=== PATIENT | male | born 1985 | race Caucasian/White ===

== ENCOUNTER 2018-12-28 13:06 | Emergency (ER) | payer SELFPAY ==
[~2018-12-28] VITALS: Ht 188 cm; Wt 75.0 kg
[2018-12-28] MEDS ORDERED: CEPHALEXIN500 M1 PO (13:29)
[2018-12-28] MEDS ORDERED: WELLBUTRIN SR150 M1 PO (13:35)
[2018-12-28] MEDS ORDERED: VYVANSE60 MG PO (13:36)
[2018-12-28 14:29] VITALS: BP 135/88; PULSE 81; TEMP 98.1
== END 2018-12-28 14:30 | disposition home or self-care (01) ==
LOC: COL.ER 13:06
DX: S61.412A Laceration without foreign body of left hand, initial encounter (principal); F17.220 Nicotine dependence, chewing tobacco, uncomplicated; Z23 Encounter for immunization; W26.8XXA Contact with other sharp object(s), not elsewhere classified, initial encounter; Y93.39 Activity, other involving climbing, rappelling and jumping off; Y92.410 Unspecified street and highway as the place of occurrence of the external cause

== ENCOUNTER 2019-01-01 17:14 | Emergency (ER) | payer OTHER ==
[~2019-01-01] VITALS: Ht 188 cm; Wt 75.0 kg
[~2019-01-01 17:14] MED LIST: CEPHALEXIN500 M1 PO; VYVANSE60 MG PO; WELLBUTRIN SR150 M1 PO
[2019-01-01 17:20] VITALS: BP 149/95; PULSE 84; TEMP 99.1
[2019-01-01] MEDS ORDERED: VYVANSE60 MG PO (17:56)
== END 2019-01-01 18:16 | disposition home or self-care (01) ==
LOC: COL.ER 17:14
DX: S61.412D Laceration without foreign body of left hand, subsequent encounter (principal); F17.290 Nicotine dependence, other tobacco product, uncomplicated; F90.9 Attention-deficit hyperactivity disorder, unspecified type; X58.XXXD Exposure to other specified factors, subsequent encounter

== ENCOUNTER 2019-01-05 09:04 | Emergency (ER) | payer OTHER ==
[~2019-01-05] VITALS: Ht 188 cm; Wt 75.0 kg
[2019-01-05 09:10] VITALS: BP 134/95; TEMP 98.3
[2019-01-05 11:00] VITALS: PULSE 74
== END 2019-01-05 11:00 | disposition home or self-care (01) ==
LOC: COL.ER 09:04
DX: T81.33XD Disruption of traumatic injury wound repair, subsequent encounter (principal); S61.412D Laceration without foreign body of left hand, subsequent encounter; F41.9 Anxiety disorder, unspecified; F90.9 Attention-deficit hyperactivity disorder, unspecified type; F17.210 Nicotine dependence, cigarettes, uncomplicated; W26.8XXA Contact with other sharp object(s), not elsewhere classified, initial encounter
CPT/HCPCS: G0463

== ENCOUNTER 2022-01-04 18:04 | Emergency (ER) | payer SELFPAY ==
[~2022-01-04] VITALS: Ht 188 cm; Wt 79.5 kg
[2022-01-04 18:06] VITALS: TEMP 99
[2022-01-04 18:36] LABS: BASO # 0.1 K/mm3 (0.0-0.2); BASO % 0.8 % (0.0-2.0); EOS % 0.1 % (0.0-4.0); GRAN # 4.8 K/mm3 (1.4-6.5); GRAN % 67.8 % (42.2-75.2); LYMPH # 1.9 K/mm3 (1.2-3.4); MEAN CELL VOLUME 83 fl (80.0-100.0); MEAN CORPUSCULAR HEMOGLOBIN 29 pg (27-31); MEAN CORPUSCULAR HGB CONC 35 g/dl (33.0-37.0); MEAN PLATELET VOLUME 8.8 fl (7.4-10.4); MONO # 0.4 K/mm3 (0.1-0.6); MONO % 5.2 % (1.7-9.3); PLATELET COUNT 300 K/mm3 (130-400)
[2022-01-04 18:52] LABS: ALBUMIN 4.1 gm/dL (3.5-5.0); BILIRUBIN,TOTAL 0.6 mg/dL (0.2-1.2); CALCIUM 9.1 mg/dL (8.4-10.2); CREATININE, serum 0.88 mg/dL (0.72-1.25); POTASSIUM 3.8 mmol/L (3.5-4.5); TOTAL PROTEIN 7.2 gm/dL (6.2-8.1)
[2022-01-04 19:15] VITALS: BP 135/87; PULSE 110
== END 2022-01-04 19:15 | disposition home or self-care (01) ==
LOC: COL.ER 18:04
PROVIDERS: Physician Assistant
DX: F10.129 Alcohol abuse with intoxication, unspecified (principal); Y90.8 Blood alcohol level of 240 mg/100 ml or more; Z28.310 Unvaccinated for COVID-19
CPT/HCPCS: C9113; J7030